=== PATIENT | male | born 1995 | race Caucasian/White ===

== ENCOUNTER 2017-06-16 20:53 | Emergency (ER) | payer SELFPAY ==
[2017-06-16 21:53] LABS: Hematocrit 42.7 % (35.5-45.6); Hemoglobin 14.5 gm/dl (11.8-15.2); Mean Corpuscular HGB Conc 34 % (32-34); Mean Corpuscular Hemoglobin 31 pg (28-32); Mean Corpuscular Volume 90 fl (84-94); Platelet Count 239 K/mm3 (140-440); Red Blood Count 4.72 M/mm3 (3.65-5.03); Red Cell Distribution Width 13.4 % (13.2-15.2)
[2017-06-16 22:08] LABS: Alanine Aminotransferase 12 units/L (7-56); Albumin 4.6 g/dL (3.9-5); BUN/Creatinine Ratio 15; Blood Urea Nitrogen 16 mg/dL (9-20); Calcium 9.1 mg/dL (8.4-10.2); Hemolysis Index 23
[2017-06-16 22:24] LABS: Bilirubin,Urine NEG (Negative); Blood,Urine NEG (Negative); Color,Urine Yellow (Yellow); Protein,Urine <15 mg/dL mg/dL (Negative); WBC,Urine < 1.0 /HPF (0.0-6.0)
[2017-06-16 22:37] LABS: Total Cells Counted 100
[2017-06-16 22:38] LABS: Anisocytosis 1+
[2017-06-16] MEDS ORDERED: ULTRAM PO ONE (23:15)
--- NOTE | 2017-06-16 23:20 | Emergency Department Report ---
ED General Adult HPI - General Chief complaint: Abdominal Pain Stated complaint: BUMPS ON GROIN AREA Time Seen by Provider: 06/16/17 22:05 Source: patient Mode of arrival: Ambulatory Limitations: No Limitations - History of Present Illness Initial comments: Patient complains of sores on his penis and started on Tuesday. He describes them as painful. He states that he was using some [id number] cream for her discomfort. Patient denies painful urination. There are no other complaints -: Sudden Radiation: non-radiation Severity scale (0 -10): 4 Quality: burning Consistency: intermittent Improves with: none Worsens with: none Treatments Prior to Arrival: none - Related Data Allergies Allergy/AdvReac Type Severity Reaction Status Date / Time No Known Allergies Allergy Verified 06/16/17 21:31 ED Review of Systems ROS: Stated complaint: BUMPS ON GROIN AREA Other details as noted in HPI Constitutional: denies: chills, fever Eyes: denies: eye pain, eye discharge, vision change ENT: denies: ear pain, throat pain Respiratory: denies: cough, shortness of breath, wheezing Cardiovascular: denies: chest pain, palpitations Endocrine: no symptoms reported Gastrointestinal: denies: abdominal pain, nausea, diarrhea Genitourinary: other (Penile pain). denies: urgency, dysuria Musculoskeletal: denies: back pain, joint swelling, arthralgia Skin: denies: rash, lesions Neurological: denies: headache, weakness, paresthesias Psychiatric: denies: anxiety, depression Hematological/Lymphatic: denies: easy bleeding, easy bruising ED Past Medical Hx - Past Medical History Previous Medical History?: No - Surgical History Past Surgical History?: No - Social History Smoking Status: Never Smoker Substance Use Type: Alcohol ED Physical Exam - General Limitations: No Limitations General appearance: alert, in no apparent distress - Head Head exam: Present: atraumatic, normocephalic - Eye Eye exam: Present: normal appearance - ENT ENT exam: Present: mucous membranes moist - Neck Neck exam: Present: normal inspection - Respiratory Respiratory exam: Present: normal lung sounds bilaterally. Absent: respiratory distress - Cardiovascular Cardiovascular Exam: Present: regular rate, normal rhythm. Absent: systolic murmur, diastolic murmur, rubs, gallop - GI/Abdominal GI/Abdominal exam: Present: soft, normal bowel sounds - Rectal Rectal exam: Present: deferred - External exam: Present: other (patient has blisters to the head of his penis) - Extremities Exam Extremities exam: Present: normal inspection - Back Exam Back exam: Present: normal inspection - Neurological Exam Neurological exam: Present: alert, oriented X3 - Psychiatric Psychiatric exam: Present: normal affect, normal mood - Skin Skin exam: Present: warm, dry, intact, normal color. Absent: rash ED Course Vital Signs 06/16/17 06/16/17 06/16/17 20:58 20:59 21:32 Temperature 98.2 F Pulse Rate 48 L 48 L 54 L Respiratory 16 16 Rate Blood Pressure 123/77 124/87 Blood Pressure [Left] O2 Sat by Pulse 99 98 98 Oximetry 06/16/17 06/16/17 22:40 22:41 Temperature 98.2 F Pulse Rate 55 L Respiratory 14 14 Rate Blood Pressure Blood Pressure 132/72 [Left] O2 Sat by Pulse 99 99 Oximetry ED Medical Decision Making - Lab Data Result diagrams: 06/16/17 21:42 06/16/17 21:42 - Medical Decision Making Discussed with patient that he should follow-up at the [facility] for further testing. Critical care attestation.: If time is entered above; I have spent that time in minutes in the direct care of this critically ill patient, excluding procedure time. ED Disposition Clinical Impression: Lesion of penis Disposition: DC-01 TO HOME OR SELFCARE Is pt being admited?: No Does the pt Need Aspirin: No Condition: Stable Referrals: SARAH GARBER MD [Primary Care Provider] - 3-5 Days ABIMAEL VILLARREAL MD [Referring] - 3-5 Days
[2017-06-16 23:34] VITALS: BP 135/72
== END 2017-06-16 23:34 | disposition home or self-care (01) ==
LOC: ED 20:53
DX: L98.8 Other specified disorders of the skin and subcutaneous tissue (principal); N48.89 Other specified disorders of penis
CPT/HCPCS: 36415; 80053; 81001; 85007; 85025; 99283